=== PATIENT | male | born 1980 | race Caucasian/White ===

== ENCOUNTER 2016-11-27 22:41 | Observation (INO) | payer BC, OTHER ==
[2016-11-27] MEDS ORDERED: Lactated Ringers 1,000 ML IV ONE (22:49)
[2016-11-27] MEDS ORDERED: Acetaminophen 325 MG Tab PO ONE (22:56)
--- NOTE | 2016-11-27 23:00 | EDM.PDOC ---
ED HPI GENERAL MEDICAL PROBLEM - General Chief Complaint: Gastrointestinal Problem Stated Complaint: N/V/D Time Seen by Provider: 11/27/16 22:45 Source of Information: Reports: Patient History Limitations: Reports: No Limitations - History of Present Illness INITIAL COMMENTS - FREE TEXT/NARRATIVE: Kentrell is a 35 yo male who presents to the ER with complaints of nausea, vomiting and diarrhea. States he started with the chills and body aches yesterday evening. Around midnight last night the diarrhea set in. States he was up every hour last night with diarrhea. Around 7:30 this morning he started vomiting. Admits he hasn't thrown up since 5 this evening. States he continues to have episodes of diarrhea. Questions some mozzarella sticks he ate around 5 yesterday evening. Has been running a fever all day. - Related Data Allergies Allergy/AdvReac Type Severity Reaction Status Date / Time No Known Allergies Allergy Verified 11/27/16 22:45 Home Meds: Home Meds . [No Known Home Meds] 11/27/16 [History] Past Medical History - Past Health History Medical/Surgical History: Denies Medical/Surgical History - Past Surgical History HEENT Surgical History: Reports: Oral Surgery, Tonsillectomy Social & Family History - Tobacco Use Smoking Status *Q: Unknown Ever Smoked - Alcohol Use Alcohol Use History: Yes Alcohol Use Frequency: Socially - Recreational Drug Use Recreational Drug Use: No - Living Situation & Occupation Living situation: Reports: ED ROS GENERAL - Review of Systems Review Of Systems: See Below Constitutional: Reports: Fever, Chills, Fatigue, Decreased Appetite HEENT: Reports: No Symptoms Respiratory: Reports: No Symptoms. Denies: Shortness of Breath, Cough Cardiovascular: Reports: No Symptoms. Denies: Chest Pain, Lightheadedness, Palpitations GI/Abdominal: Reports: Diarrhea, Decreased Appetite, Nausea, Vomiting. Denies: Abdominal Pain, Bloody Stool, Mucous in Stool : Reports: Frequency (decreased frequency). Denies: Flank Pain Musculoskeletal: Reports: Other (muscle aches) Skin: Reports: No Symptoms. Denies: Rash Neurological: Reports: No Symptoms Psychiatric: Reports: No Symptoms ED EXAM, GI/ABD - Physical Exam Exam: See Below Exam Limited By: No Limitations General Appearance: Alert, Mild Distress. No: Active Emesis Ears: Normal External Exam, Hearing Grossly Normal Nose: Normal Inspection, No Blood Throat/Mouth: Normal Inspection, Normal Lips, Normal Teeth, Normal Gums, Normal Oropharynx, No Airway Compromise Head: Atraumatic, Normocephalic Neck: Normal Inspection, Supple Respiratory/Chest: No Respiratory Distress, Lungs Clear, Normal Breath Sounds Cardiovascular: Regular Rate, Rhythm, No Murmur GI/Abdominal: Normal Bowel Sounds, Soft, No Distention, No Mass, Tenderness ( mildly, diffuse). No: Guarding, Rebound, Rigidity, McBurney's Sign Extremities: Normal Inspection, Non-Tender, Normal Capillary Refill Neurological: Alert, Oriented, No Motor/Sensory Deficits Psychiatric: Normal Affect, Normal Mood Skin Exam: Warm, Dry, Intact, Normal Color, No Rash Course - Orders/Labs/Meds Orders: Active Orders 24 hr Category Date Time Status AMYLASE [CHEM] Stat Lab 11/27/16 22:49 Ordered C-REACTIVE PROTEIN [CHEM] Stat Lab 11/27/16 22:49 Ordered COMPREHENSIVE METABOLIC PN,CMP [CHEM] Stat Lab 11/27/16 22:49 Ordered MAGNESIUM [CHEM] Stat Lab 11/27/16 22:49 Ordered STOOL CULTURE/SHIGA TOXIN [MREF] Stat Lab 11/27/16 22:51 Uncollected UA W/MICROSCOPIC [URIN] Stat Lab 11/27/16 22:49 Uncollected WBC, STOOL [OP] Stat Lab 11/27/16 22:51 Uncollected Lactated Ringers [Ringers, Lactated] 1,000 ml Med 11/27/16 22:49 Active IV .BOLUS Ondansetron [Zofran] Med 11/27/16 22:57 Active 4 mg IV Q4H PRN Medication Orders Lactated Ringer's (Ringers, Lactated) 1,000 mls @ 999 mls/hr IV .BOLUS ONE Stop: 11/27/16 23:49 Ondansetron HCl (Zofran) 4 mg IV Q4H PRN PRN Reason: Nausea/Vomiting Labs: Laboratory Tests 11/27/16 Range/Units 22:55 WBC 15.0 H (5.0-10.0) 10^3/uL RBC 4.97 (4.50-6.00) 10^6/uL Hgb 13.8 L (14.0-18.0) g/dL Hct 40.3 (40.0-54.0) % MCV 81.1 L (82.0-94.0) fL MCH 27.8 (27.0-32.0) pg MCHC 34.2 (33.0-38.0) g/dL RDW Coeff of Daxa 13.3 (11.0-15.0) % Plt Count 167 (150-400) 10^3/uL Neut % (Auto) 88.4 H (35-85) % Lymph % (Auto) 3.4 L (10-55) % [place] % (Auto) 8.1 (0-16) % Eos % (Auto) 0 (0-5) % Baso % (Auto) 0.1 (0-3) % Neut # (Auto) 13.30 H (1.80-7.00) 10^3/uL Lymph # (Auto) 0.51 L (1.00-4.80) 10^3/uL [place] # (Auto) 1.22 H (0.00-0.80) 10^3/uL Eos # (Auto) 0.00 (0.00-0.45) 10^3/uL Baso # (Auto) 0.01 10^3/uL Meds: Medications Generic Name Dose Route Start Last Admin Trade Name Freq PRN Reason Stop Dose Admin Lactated Ringer's 1,000 mls @ 999 mls/hr 11/27/16 22:49 Ringers, Lactated IV 11/27/16 23:49 .BOLUS ONE Ondansetron HCl 4 mg 11/27/16 22:57 Zofran IV Q4H PRN Nausea/Vomiting Discontinued Medications Generic Name Dose Route Start Last Admin Trade Name Freq PRN Reason Stop Dose Admin Acetaminophen 650 mg 11/27/16 22:56 Tylenol PO 11/27/16 22:57 NOW ONE Departure - Departure Time of Disposition: 23:22 Disposition: Refer to Observation Clinical Impression: Gastroenteritis - Discharge Information Instructions: Nausea and Vomiting, Adult, [id number], Viral Gastroenteritis, Adult, [id number] Forms: ED Department Discharge - Problem List & Annotations (1) Gastroenteritis SNOMED Code(s): 94225373 Code(s): K52.9 - NONINFECTIVE GASTROENTERITIS AND COLITIS, UNSPECIFIED Status: Acute - Problem List Review Problem List Initiated/Reviewed/Updated: Yes - My Orders Last 24 Hours: My Active Orders 11/27/16 22:49 AMYLASE [CHEM] Stat C-REACTIVE PROTEIN [CHEM] Stat COMPREHENSIVE METABOLIC PN,CMP [CHEM] Stat MAGNESIUM [CHEM] Stat UA W/MICROSCOPIC [URIN] Stat Lactated Ringers [Ringers, Lactated] 1,000 ml IV .BOLUS 11/27/16 22:51 STOOL CULTURE/SHIGA TOXIN [MREF] Stat WBC, STOOL [OP] Stat 11/27/16 22:57 Ondansetron [Zofran] 4 mg IV Q4H PRN - Assessment/Plan Admission H&P: Please use this note as an admission H&P Last 24 Hours: My Active Orders 11/27/16 22:49 AMYLASE [CHEM] Stat C-REACTIVE PROTEIN [CHEM] Stat COMPREHENSIVE METABOLIC PN,CMP [CHEM] Stat MAGNESIUM [CHEM] Stat UA W/MICROSCOPIC [URIN] Stat Lactated Ringers [Ringers, Lactated] 1,000 ml IV .BOLUS 11/27/16 22:51 STOOL CULTURE/SHIGA TOXIN [MREF] Stat WBC, STOOL [OP] Stat 11/27/16 22:57 Ondansetron [Zofran] 4 mg IV Q4H PRN Plan: Will admit to Dr. Evans's services under observation. Will closely monitor and repeat laboratory work in the am. If any abdominal pain thru out the night will plan on CT of the abdomen/pelvis. Currently Kentrell has no abdominal pain and hasn 't had any since onset of symptoms. Will give IV fluids, Zofran and Tylenol for fever. Kentrell verbalized understanding and will transfer to floor in satisfactory condition. No active diarrhea or vomiting in ER. Kentrell admitted to feeling better after 1/2 Liter of IV fluids.
[2016-11-27 23:12] LABS: CHLORIDE,CL 101 mEq/L (98-106); SODIUM,NA 136 mEq/L (136-145)
[2016-11-27] MEDS: Ondansetron 4 MG/2 ML SDV IV PRN (23:24)
[2016-11-28] MEDS ORDERED: Lactated Ringers 1,000 ML ONE (00:14)
[2016-11-28] MEDS ORDERED: Lactated Ringers 1,000 ML IV SCH (00:45)
[2016-11-28] MEDS: Lactated Ringers 1,000 ML IV SCH ×2 (04:27→14:36)
[2016-11-28] MEDS ORDERED: Ibuprofen 200 MG Tab ONE (04:32)
[2016-11-28] MEDS: Ibuprofen 200 MG Tab PO PRN ×3 (04:41→19:36)
[2016-11-28] MEDS: Ondansetron 4 MG/2 ML SDV IV PRN ×2 (04:48→12:59)
[2016-11-28 07:44] LABS: CHLORIDE,CL 103 mEq/L (98-106); SODIUM,NA 137 mEq/L (136-145)
[2016-11-28] MEDS: Magnesium Sulfate/D5W 2 GM in Premix Bag 1 BAG IV ONE ×2 (09:48→10:46)
[2016-11-28] MEDS: Pantoprazole 40 MG Vial IVPUSH SCH (12:59)
--- NOTE | 2016-11-28 13:32 | PN ---
DATE: 11/28/2016 S: Kentrell is a 35-year-old male who presented to the emergency room yesterday evening with concerns of nausea, vomiting, and diarrhea. It have been ongoing since for the last couple days. He states that he has got to a point he is having difficulty drinking any fluids. Diarrhea had been consistent. He had no abdominal pain with it, was running a high grade fever. Initial laboratory work yesterday did show white blood count of 15,000 with a CRP of 18.4; however, again he had no abdominal pain. No CT scan was ordered secondary to this. He was admitted to the hospital in observation for IV fluids and further monitoring. He states that he did have an episode of nausea, vomiting, and diarrhea in the middle of the night. He states he continues to have no abdominal pain whatsoever, continues to have some liquidy stools in which we did get stool cultures. He states he has not had any vomiting since the middle of the night. He states he is gradually starting to feel a little bit better again today. Has been able to keep some oral water down. O: VITAL SIGNS: Blood pressure is 117/66, pulse 73, temp currently is 99.0 this morning with O2 saturation 96% with a respiratory rate of 16. GENERAL: Pleasant cooperative male. He is lying in bed. He does not really appear to be in any acute distress this morning, had normal conversation with me, does not appear to be febrile. HEENT: Grossly unremarkable. LUNGS: Clear to auscultation. I do not hear any adventitious sounds. CARDIAC: Regular. ABDOMEN: Soft. Again, no tenderness whatsoever. Negative McBurney point. Bowel sounds are present and normoactive. No guarding or rigidity is noted. EXTREMITIES: No pedal edema is noted. SKIN: Uniformly pink, warm, and dry. ASSESSMENT: ACUTE GASTROENTERITIS. P: We will put him on 40 mg of IV Protonix daily. White blood count did come down to 11,100. Neutrophils are slightly declining as well. A CRP did elevate up to 24.1, however, urinalysis was negative. Magnesium was low at 1.5. We did give him 2 g of magnesium intravenously this morning. We will repeat a magnesium in the morning along with a laboratory workup. Did consult Dr. Evans in regard to his condition. Stool culture did come back negative for C diff and no WBCs were seen. We are still waiting for rotavirus antigen and stool culture, etc. Blood cultures are pending as well. We will refrain from any antibiotic use at this point in time as discussed with Dr. Evans. We will evaluate in the morning. AJ/ELMER /[id number]
[2016-11-28] MEDS: Loperamide 2 MG Cap PO PRN (20:08)
[2016-11-29] MEDS: Lactated Ringers 1,000 ML IV SCH ×2 (00:39→13:17)
[2016-11-29] MEDS: Loperamide 2 MG Cap PO PRN ×3 (04:17→19:48)
[2016-11-29] MEDS: Acetaminophen 325 MG Tab PO PRN ×2 (04:17→19:48)
[2016-11-29] MEDS: Ondansetron 4 MG/2 ML SDV IV PRN (04:18)
[2016-11-29] MEDS: Ibuprofen 200 MG Tab PO PRN (07:26)
[2016-11-29 07:38] LABS: CHLORIDE,CL 104 mEq/L (98-106); SODIUM,NA 139 mEq/L (136-145)
[2016-11-29] MEDS ORDERED: Iopamidol 612 MG/ML 100 ML Bottle IVPUSH ONE (10:18)
[2016-11-29] MEDS: Pantoprazole 40 MG Vial IVPUSH SCH (12:35)
[2016-11-29] MEDS ORDERED: Levofloxacin/Dextrose 5%-Water 500 MG in Premix Bag 1 BAG IV SCH (13:00)
[2016-11-29] MEDS: Sodium Chloride 0.9% 1,000 ML IV SCH (13:20)
[2016-11-29] MEDS ORDERED: Sodium Chloride 0.9% 1,000 ML ONE (13:40)
[2016-11-29] MEDS: metroNIDAZOLE/Normal Saline 500 MG in Premix Bag 1 BAG IV SCH ×2 (14:31→21:47)
--- NOTE | 2016-11-29 14:44 | PN ---
DATE: 11/29/2016 S: Kentrell had a good day yesterday. His stools seem to be getting a little bit less. He has not had any vomiting. Once again in the float operator hours around three or four in the morning, spiked a high temp, got very nauseous and had some looser stools. Got a temp up to 101, he is back down to 98.3 now and feeling better. His lab work shows his white count to be down to 5.6, but his CRP remains elevated at 23.4. Hypokalemia and hypomagnesemia both been resolved for the most part. We are not getting any obvious etiology suspect of viral source. His blood spot was negative as was his C. diff. Have not had any results on blood or stool cultures. O: GENERAL: He is pleasant and cooperative. Appears in no distress. NECK: His neck veins are flat. LUNGS: Clear. CARDIAC: Tones are regular. ABDOMEN: Little more distended, but really I cannot elicit any significant pain. He has a little more discomfort in the right lower quadrant. ASSESSMENT: ACUTE GASTROENTERITIS, QUESTIONABLE ETIOLOGY. P: He clinically looks better and his lab work is reassuring other than his CRP because he has a little more right lower quadrant pain and I am going to get a CT scan of the abdomen and pelvis. If that is negative and he is doing well, we may elect to discharge home later today. JUAN F/ELMER /[id number]
[2016-11-30] MEDS: Sodium Chloride 0.9% 1,000 ML IV SCH (01:38)
[2016-11-30] MEDS: metroNIDAZOLE/Normal Saline 500 MG in Premix Bag 1 BAG IV SCH (06:01)
[2016-11-30 07:44] VITALS: BP 136/71
--- NOTE | 2016-11-30 09:06 | PCM.DCSUM1 ---
[id number] presents to the hospital admit for abdominal pain. Patient was admitted for abdominal pain, vomiting, diarrhea, fever. The patient CT scan per Dr Evans showed possible Chrons. The patient yesterday was started on Levaquin and Flagyl. Today, the patient is fever free. He reports he has felt great since last night. He denies abdominal pain, nausea, vomiting, fever, diarrhea today. The patient is eating a regular meal without any difficulty today. The patient is scheduled for a scope with Dr Evans this coming week. The patient reports he is ready to go home now. Patient CRP has improved, the other labs are unremarkable. I will discharge this patient on his abx treatment and have him followup with his PCP. He is educated when to return to the ER. - Discharge Data Discharge Date: 11/30/16 Discharge Disposition: Home, Self-Care 01 Condition: Good - Patient Instructions Diet: Usual Diet as Tolerated Activity: As Tolerated Driving: May Drive Today Showering/Bathing: May Shower Notify Provider of: Fever, Increased Pain, Nausea and/or Vomiting - Discharge Plan Prescriptions/Med Rec: Levofloxacin/Dextrose 5%-Water [Levaquin in D5W 500 MG/100 ML] 500 mg PO Q24H # 7 bag Ondansetron [Zofran] 4 mg PO Q4H PRN #30 vial PRN Reason: Nausea/Vomiting metroNIDAZOLE/Normal Saline [Flagyl 500 MG in NS 100 ML] 500 mg PO Q8H #30 bag Home Medications: Home Meds Levofloxacin/Dextrose 5%-Water [Levaquin in D5W 500 MG/100 ML] 500 mg PO Q24H # 7 bag 11/30/16 [Rx] Ondansetron [Zofran] 4 mg PO Q4H PRN #30 vial 11/30/16 [Rx] metroNIDAZOLE/Normal Saline [Flagyl 500 MG in NS 100 ML] 500 mg PO Q8H #30 bag 11/30/16 [Rx] Patient Handouts: Viral Gastroenteritis, Adult, [id number], Nausea and Vomiting, Adult, Cgbi-[id number] Forms: ED Department Discharge Referrals: Filippo Mueller PA-C [Emergency Provider] - - Discharge Summary/Plan Comment DC Time >30 min.: No - General Info Functional Status: Reports: pain controlled, tolerating diet, ambulating, urinating - Review of Systems General: Reports: No Symptoms HEENT: Reports: no symptoms Pulmonary: Reports: no symptoms Cardiovascular: Reports: No Symptoms Gastrointestinal: Reports: No symptoms. Denies: Abdominal pain, Diarrhea, Nausea, Vomiting Genitourinary: Reports: no symptoms Musculoskeletal: Reports: no symptoms Skin: Reports: no symptoms Neurological: Reports: No Symptoms Psychiatric: Reports: no symptoms - Patient Data Vitals - Most Recent: Last Vital Signs Temp 98.4 F 11/30/16 07:43 Pulse 61 11/30/16 07:43 Resp 16 11/30/16 07:43 BP 136/71 11/30/16 07:43 Pulse Ox 95 11/30/16 07:43 Weight - Most Recent: 225 lb I&O - Last 24 hours: Intake & Output 11/29/16 11/30/16 11/30/16 22:59 06:59 14:59 Intake Total 1200 180 Balance 1200 180 Lab Results - Last 24 hrs: Laboratory Results - last 24 hr 11/30/16 11/30/16 Range/Units 08:18 08:19 WBC 4.7 L (5.0-10.0) 10^3/uL RBC 4.34 L (4.50-6.00) 10^6/uL Hgb 12.1 L (14.0-18.0) g/dL Hct 36.3 L (40.0-54.0) % MCV 83.6 (82.0-94.0) fL MCH 27.9 (27.0-32.0) pg MCHC 33.3 (33.0-38.0) g/dL RDW Coeff of Daxa 13.2 (11.0-15.0) % Plt Count 159 (150-400) 10^3/uL Neut % (Auto) 49.3 (35-85) % Lymph % (Auto) 28.1 (10-55) % [place] % (Auto) 17.9 H (0-16) % Eos % (Auto) 4.5 (0-5) % Baso % (Auto) 0.2 (0-3) % Neut # (Auto) 2.31 (1.80-7.00) 10^3/uL Lymph # (Auto) 1.32 (1.00-4.80) 10^3/uL [place] # (Auto) 0.84 H (0.00-0.80) 10^3/uL Eos # (Auto) 0.21 (0.00-0.45) 10^3/uL Baso # (Auto) 0.01 10^3/uL C-Reactive Protein 13.1 H (0.2-0.8) mg/dL VIVIEN Results - Last 24 hrs: Microbiology 11/28/16 04:00 Shiga Toxin I & II - Final Stool / Feces 11/28/16 09:15 Aerobic Blood Culture - Preliminary Blood - Venous - Lab Draw NO GROWTH AFTER 1 DAY Anaerobic Blood Culture - Preliminary NO GROWTH AFTER 1 DAY 11/28/16 09:10 Aerobic Blood Culture - Preliminary Blood - Venous NO GROWTH AFTER 1 DAY Anaerobic Blood Culture - Preliminary NO GROWTH AFTER 1 DAY 11/28/16 04:00 Rotavirus Antigen - Final Stool / Feces Med Orders - Current: Current Medications Acetaminophen (Tylenol) 650 mg PO Q4H PRN PRN Reason: Fever Last Admin: 11/29/16 19:48 Dose: 650 mg Levofloxacin/Dextrose 500 mg/ (Premix) 100 mls @ 100 mls/hr IV Q24H [facility] Last Admin: 11/29/16 13:29 Dose: 100 mls/hr Metronidazole 500 mg/ Premix 100 mls @ 100 mls/hr IV Q8H [facility] Last Admin: 11/30/16 06:01 Dose: 100 mls/hr Sodium Chloride (Normal Saline) 1,000 mls @ 125 mls/hr IV ASDIRECTED [facility] Last Admin: 11/30/16 01:38 Dose: 125 mls/hr Ibuprofen (Motrin) 600 mg PO Q6H PRN PRN Reason: Fever Last Admin: 11/29/16 07:26 Dose: 600 mg Loperamide HCl (Imodium) 2 mg PO Q4H PRN PRN Reason: Diarrhea Last Admin: 11/29/16 19:48 Dose: 2 mg Ondansetron HCl (Zofran) 4 mg IV Q4H PRN PRN Reason: Nausea/Vomiting Last Admin: 11/29/16 04:18 Dose: 4 mg Pantoprazole Sodium (Protonix Iv) 40 mg IVPUSH Q24H [facility] Last Admin: 11/29/16 12:35 Dose: 40 mg Discontinued Medications Acetaminophen (Tylenol) 650 mg PO NOW ONE Stop: 11/27/16 22:57 Last Admin: 11/27/16 23:24 Dose: 650 mg Lactated Ringer's (Ringers, Lactated) 1,000 mls @ 999 mls/hr IV .BOLUS ONE Stop: 11/27/16 23:49 Last Admin: 11/27/16 22:55 Dose: 999 mls/hr Lactated Ringer's (Ringers, Lactated) Confirm Administered Dose 1,000 mls @ as directed .ROUTE .STK-MED ONE Stop: 11/28/16 00:15 Last Admin: 11/28/16 00:44 Dose: Not Given Lactated Ringer's (Ringers, Lactated) 1,000 mls @ 250 mls/hr IV ASDIRECTED [facility] Stop: 11/28/16 04:44 Last Admin: 11/28/16 00:10 Dose: 250 mls/hr Lactated Ringer's (Ringers, Lactated) 1,000 mls @ 125 mls/hr IV ASDIRECTED [facility] Last Admin: 11/29/16 13:17 Dose: 125 mls/hr Magnesium Sulfate/Dextrose 2 (gm/ Premix) 200 mls @ 100 mls/hr IV ONETIME ONE Stop: 11/28/16 09:41 Last Admin: 11/28/16 10:46 Dose: 100 mls/hr Magnesium Sulfate/Dextrose (Magnesium 1 Gm In D5w 100 Ml) Confirm Administered Dose 100 mls @ as directed .ROUTE .STK-MED ONE Stop: 11/28/16 10:57 Last Admin: 11/28/16 11:33 Dose: Not Given Sodium Chloride (Normal Saline) Confirm Administered Dose 1,000 mls @ as directed .ROUTE .STK-MED ONE Stop: 11/29/16 13:41 Last Admin: 11/29/16 13:54 Dose: Not Given Ibuprofen (Motrin) Confirm Administered Dose 600 mg .ROUTE .STK-MED ONE Stop: 11/28/16 04:33 Last Admin: 11/28/16 04:42 Dose: Not Given Iopamidol (Isovue-300 (61%)) 100 ml IVPUSH ONETIME ONE Stop: 11/29/16 10:19 Last Admin: 11/29/16 11:41 Dose: 100 ml - Exam General: Reports: alert, oriented, cooperative, no acute distress Lungs: Reports: Clear to auscultation, Normal respiratory effort Cardiovascular: Reports: Regular Rate, Regular Rhythm Abdomen: Reports: bowel sounds present, soft, no tenderness, no distension. Denies: rigidity, rebound, guarding, tenderness, distension, CVA tenderness Back Exam: Reports: Normal Inspection, Full Range of Motion. Denies: CVA Tenderness (L), CVA Tenderness (R) Extremities: Reports: no edema Skin: Reports: warm, dry, intact Neurological: Reports: no new focal deficit Psy/Mental Status: Reports: alert, normal affect, normal mood *Q Meaningful Use (DIS) - VTE *Q VTE Criteria *Q: - Stroke *Q Stroke Criteria *Q: - AMI *Q AMI Criteria *Q:
== END 2016-11-30 10:30 | disposition home or self-care (01) ==
LOC: CC.ED 22:41 → UNDOADMOB 11-28 00:13 → CC.MS 11-28 00:13
PROVIDERS: ADMIT Physician Assistant Medical; ATTEND Family Medicine
DX: K52.9 Noninfective gastroenteritis and colitis, unspecified (principal); Z98.890 Other specified postprocedural states; Z79.899 Other long term (current) drug therapy
CPT/HCPCS: 36415; 74177; 80048; 80053; 81001; 82150; 83735; 85025; 86140; 87040; 87045; 87046; 87425; 87493; 87899; 89055; 96361; 96365; 96366; 96375; 96376; 99284; A9270; C9113; G0378; J1956; J2405; J3475; J7030; J7120; Q9967; 96374

== ENCOUNTER → 2016-12-06 | Day surgery (SDC) | payer OTHER ==
[~2016-12-06] MED LIST: Lactated Ringers 1,000 ML IV SCH; Propofol 200 MG/20 ML SDV IV ONE
[2016-12-06 12:56] VITALS: BP 118/67
--- NOTE | 2016-12-09 07:18 | OR ---
DATE OF OPERATION: 12/06/2016 PREOPERATIVE DIAGNOSIS: COLITIS, POSSIBLE CROHN'S. POSTOPERATIVE DIAGNOSIS: COLITIS, POSSIBLE CROHN'S. SURGEON: Layton Evans MD PROCEDURE: COLONOSCOPY WITH BIOPSIES X5. ANESTHESIA: ORTHOTIC TECHNICIAN. COMPLICATIONS: None. SPECIMEN: Five total biopsies, two terminal ileum, three left sigmoid and rectosigmoid area. FINDINGS: 1. Full-length colonoscopy. 2. Resolving left-sided colitis. 3. Resolving ileitis. RECOMMENDATIONS: This likely represents his Campylobacter infection. No signs of any inflammatory bowel disease. INDICATIONS: The patient was in the hospital for extended stay after a severe case of gastroenteritis. A CT scan showed left-sided colitis and inflammation of the terminal ileum. Radiology was worried about Crohn's appropriately. We elected to proceed with colonoscopy. DESCRIPTION OF PROCEDURE: The patient was prepped and draped, placed in the left lateral decubitus position. A lubricated Olympus colonoscope was inserted and easily advanced to the cecum where we directly visualized the ileocecal valve and intubated into it into the terminal ileum. There was minimal residual inflammation of the terminal ileum. A few areas of fine petechiae and erythema of the lining. We did do two biopsies of the area, but it was very benign in appearance, nothing to suggest inflammatory polyp disease. Scope was brought back into the colon. The cecum, ascending and transverse areas were completely benign. There were no residual signs of colitis in the descending colon. The mid and distal sigmoid had some very mild erythema. No ulcerations or signs of inflammatory bowel disease. We did three biopsies, two of the distal sigmoid and one of the rectosigmoid area. The rectal vault was unremarkable. Retroflexion showed no anal lesions. Air was then suctioned. Scope was removed without complication. JUAN F/ELMER /[id number]
== END ==
LOC: CC.SDS 11:16
PROVIDERS: ATTEND Family Medicine
DX: K63.89 Other specified diseases of intestine (principal); Z79.899 Other long term (current) drug therapy
CPT/HCPCS: 45380; J2704; J7120

== ENCOUNTER 2022-10-14 22:13 | Emergency (ER) | payer BC ==
[2022-10-14 22:27] VITALS: BP 142/82; PULSE 108
[2022-10-14] MEDS: Ondansetron 4 MG/2 ML SDV IVPUSH ONE (22:41)
[2022-10-14] MEDS: Sodium Chloride 0.9% 1,000 ML IV ONE (22:41)
[2022-10-14] MEDS: Acetaminophen 500 MG Tab PO ONE (22:43)
[2022-10-14] MEDS: Ibuprofen 200 MG Tab PO ONE (23:11)
[2022-10-14] MEDS: Take Home: Ondansetron 4 MG Tab.DIS, 2 Tab Pack PO ONE (23:34)
== END 2022-10-15 00:05 | disposition home or self-care (01) ==
LOC: CC.ED 22:13
DX: K52.9 Noninfective gastroenteritis and colitis, unspecified (principal); Z20.822 Contact with and (suspected) exposure to COVID-19
CPT/HCPCS: 36415; 80053; 82150; 83690; 85025; 87804; 96361; 96374; 99284; 99284-25; A9270-GY; J2405; J7030; U0002